=== PATIENT | female | born 1990 | race Caucasian/White ===

== ENCOUNTER 2018-03-13 17:52 | Emergency (ER) | payer SELFPAY ==
[2018-03-13 18:11] VITALS: BP 105/64
[2018-03-13] MEDS ORDERED: DEXAMETHASONE 4 MG TABLET PO ONE (19:19)
--- NOTE | 2018-03-13 19:19 | ER Document Report ---
ED General - General Chief Complaint: Sore Throat Stated Complaint: SORE THROAT, BODY ACHES, FEVER Time Seen by Provider: 03/13/18 19:15 Notes: Patient presents with 2 days of sore throat and swollen tonsils. Patient has no respiratory compromise. She states that she has had a temperature of up to 101. She denies any cough or congestion. She does have a history of strep throat in the past. TRAVEL OUTSIDE OF THE [place] IN LAST 30 DAYS: No - Related Data Allergies/Adverse Reactions: No Known Allergies Allergy (Verified 03/13/18 17:54) Past Medical History - Social History Smoking Status: Current Every Day Smoker Chew tobacco use (# tins/day): No Frequency of alcohol use: None Drug Abuse: None Family History: Reviewed & Not Pertinent Patient has suicidal ideation: No Patient has homicidal ideation: No - Past Medical History Cardiac Medical History: Denies: Hx Coronary Artery Disease, Hx Hypertension Pulmonary Medical History: Denies: Hx Asthma Endocrine Medical History: Denies: Hx Diabetes Mellitus Type 1, Hx Diabetes Mellitus Type 2 Renal/ Medical History: Denies: Hx Peritoneal Dialysis GI Medical History: Denies: Hx Gastroesophageal Reflux Disease, Hx Hiatal Hernia , Hx Ulcer Past Surgical History: Reports: Hx Section - x3 - Immunizations Hx Diphtheria, Pertussis, Tetanus Vaccination: Yes Review of Systems - Review of Systems Constitutional: No symptoms reported EENT: Other - Swollen tender tonsils and swollen bilateral cervical lymph nodes Cardiovascular: No symptoms reported Respiratory: No symptoms reported Gastrointestinal: No symptoms reported Genitourinary: No symptoms reported Female Genitourinary: No symptoms reported Musculoskeletal: No symptoms reported Skin: No symptoms reported Hematologic/Lymphatic: No symptoms reported Neurological/Psychological: No symptoms reported Physical Exam - Vital signs Vitals: Temp Pulse Resp BP Pulse Ox 98 F 82 18 105/64 97 03/13/18 18:08 03/13/18 18:08 03/13/18 18:08 03/13/18 18:08 03/13/18 18:08 - General General appearance: Appears well, Alert - HEENT Head: Normocephalic, Atraumatic Notes: Bilateral anterior superior cervical lymphadenopathy with swollen erythematous tonsils bilaterally with purulence with no evidence of peritonsillar abscess or retropharyngeal abscess with uvula midline - Respiratory Respiratory status: No respiratory distress Chest status: Nontender Breath sounds: Normal - Cardiovascular Rhythm: Regular Heart sounds: Normal auscultation Murmur: Yes - Abdominal Inspection: Normal Distension: No distension Bowel sounds: Normal Tenderness: Nontender Course - Re-evaluation Re-evalutation: 03/13/18 19:18 Patient well-appearing in no acute distress. Patient meets Center score to treat with antibiotics. Strep test will still be obtained for culture purposes. - Vital Signs Vital signs: Temp Pulse Resp BP Pulse Ox 98 F 82 18 105/64 97 03/13/18 18:08 03/13/18 18:08 03/13/18 18:08 03/13/18 18:08 03/13/18 18:08 Discharge - Discharge Clinical Impression: Acute pharyngitis Qualifiers: Pharyngitis/tonsillitis etiology: other specified organisms Qualified Code(s): J02.8 - Acute pharyngitis due to other specified organisms Disposition: HOME, SELF-CARE Instructions: Penicillin V K ([facility]), Sore Throat ([facility]), Strep Throat ([facility]) Additional Instructions: Please return to the emergency department if symptoms are not improving or worsening.
[2018-03-13] MEDS ORDERED: PENICILLIN G BENZATHINE 1.2 MILLION UNIT/2 ML DISP.SYRIN IM ONE (19:20)
== END 2018-03-13 20:04 | disposition home or self-care (01) ==
LOC: ER 17:52
DX: J02.8 Acute pharyngitis due to other specified organisms (principal); M79.1 Myalgia; R50.9 Fever, unspecified; F17.200 Nicotine dependence, unspecified, uncomplicated
CPT/HCPCS: 99282; J0561